=== PATIENT | female | born 1940 | race Caucasian/White ===

== ENCOUNTER → 2019-09-06 | Outpatient (CLI) | payer MEDICARE ==
--- NOTE | 2019-09-06 14:28 | KCIC ---
MRI study of the right knee without contrast Clinical indications: Right knee pain. M 25.561. Patient fell one month ago. Continued pain and swelling. Unable to bear weight. TECHNIQUE: Noncontrast MRI sequences of the right knee were performed in all 3 planes. FINDINGS: The anterior and posterior cruciate ligaments are intact. The quadriceps and patellar tendons are intact. There is severe degenerative attenuation and signal abnormality of the lateral meniscus. This involves the body and anterior horn and posterior horn. There is a superior articular surface tear of the posterior horn of the lateral meniscus. The medial meniscus is intact. The medial collateral ligament is intact and no meniscocapsular separation is seen. The lateral collateral ligament complex and iliotibial band and popliteus tendon are intact. No posterior lateral corner injury is seen. No fracture or bone contusion or marrow infiltrative process is seen. There is severe chondromalacia with loss of articular cartilage of the lateral tibial femoral joint compartment with moderate degenerative spurring. Mild chondromalacia and mild degenerative spurring of the medial tibiofemoral joint compartment is seen. The patella is normally aligned. There is severe chondromalacia patellae with loss of articular cartilage especially involving the lateral patellar facet and apex with subchondral cyst formation and bone marrow edema. There is severe trochlear chondromalacia with loss of cartilage including the central trochlear groove and lateral portion of the trochlear groove. There is moderate degenerative spurring of the patellofemoral joint compartment. Medial and lateral retinacular ligaments are intact. No distended Cervantes's cyst is seen. Small knee joint effusion is seen. No loose osteochondral body is evident. No muscle edema is seen. IMPRESSION: Severe chondromalacia patellae and trochlear chondromalacia. Severe chondromalacia involving the lateral tibiofemoral joint compartment with loss of articular cartilage and moderate spurring. Mild chondromalacia and mild spurring of the medial tibial femoral joint compartment. Severe degenerative attenuation and signal abnormality of the lateral meniscus. Superior articular surface tear of the posterior horn of the lateral meniscus. Electronically signed by: Los Weems MD (09/06/2019 2:25 PM) [id number]
== END | disposition home or self-care (01) ==
LOC: KCIC MRI 11:46
PROVIDERS: ATTEND Family Medicine
DX: S83.281A Other tear of lateral meniscus, current injury, right knee, initial encounter (principal); M94.261 Chondromalacia, right knee; M76.891 Other specified enthesopathies of right lower limb, excluding foot; M25.461 Effusion, right knee; W19.XXXA Unspecified fall, initial encounter; Y93.89 Activity, other specified; Y92.89 Other specified places as the place of occurrence of the external cause; Y99.8 Other external cause status
CPT/HCPCS: 73721